=== PATIENT | male | born 2000 | race Caucasian/White ===

== ENCOUNTER 2022-04-09 23:29 | Emergency (ER) | payer SELFPAY ==
[~2022-04-09] VITALS: Ht 170.2 cm; Wt 71.7 kg
[2022-04-09 23:52] VITALS: BP 121/83
== END 2022-04-09 23:58 | disposition left against medical advice (07) ==
LOC: ER 23:29
DX: M25.512 Pain in left shoulder (principal); M25.412 Effusion, left shoulder; M21.922 Unspecified acquired deformity of left upper arm; Z53.21 Procedure and treatment not carried out due to patient leaving prior to being seen by health care provider